=== PATIENT | male | born 2000 | race African-American/Black ===

== ENCOUNTER 2021-07-12 16:41 | Emergency (ER) | payer SELFPAY ==
--- NOTE | 2021-07-12 17:43 | RAD REPORT ---
EXAM DESCRIPTION: RAD - Knee Right 3 View - 07/12/2021 5:35 pm CLINICAL HISTORY: right knee pain COMPARISON: No comparisonsNo comparisons FINDINGS/IMPRESSION: No acute fracture. No malalignment. Question mild lateral compartment narrowing versus positioning.
--- NOTE | 2021-07-12 18:11 | ER ---
Nurse's Notes [facility] Name: Humphrey Montes Jr Age: 21 yrs Sex: Male : 2000 Arrival Date: 07/12/2021 Time: 16:44 Bed DIS3 Private MD: Diagnosis: Other internal derangements of right knee Presentation: 07/12 17:05 Chief complaint: Patient states: he has a hx of right knee injury, and it is bothering ap3 him more and more lately. patient states the pain is a 5/10 when walking and a 8/10 if he attempts to bend it. Coronavirus screen: At this time, the client does not indicate any symptoms associated with coronavirus-19. Ebola Screen: No symptoms or risks identified at this time. Initial Sepsis Screen: Does the patient meet any 2 criteria? No. Patient's initial sepsis screen is negative. Does the patient have a suspected source of infection? No. Patient's initial sepsis screen is negative. Risk Assessment: Do you want to hurt yourself or someone else? Patient reports no desire to harm self or others. Onset of symptoms is unknown. 17:05 Method Of Arrival: Ambulatory ap3 17:05 Acuity: ROSITA 4 ap3 Triage Assessment: 17:07 General: Appears in no apparent distress. Behavior is calm, cooperative, appropriate ap3 for age. Pain: Complains of pain in right knee Pain currently is 5 out of 10 on a pain scale. at worst was 8 out of 10 on a pain scale. Pain began gradually, years ago. Aggravated by exercise, increased activity, weight bearing. Neuro: Level of Consciousness is awake, alert, obeys commands, Oriented to person, place, time, situation, Appropriate for age Gait is steady, Speech is normal. Cardiovascular: Patient's skin is warm and dry. Respiratory: Airway is patent Respiratory effort is even, unlabored, Respiratory pattern is regular, symmetrical. Musculoskeletal: Swelling present in right knee Reports pain in right knee. Historical: - Allergies: 17:07 No Known Allergies; ap3 - Home Meds: 17:07 None [Active]; ap3 - PMHx: 17:07 None; ap3 - Immunization history:: Client reports having NOT received the Covid vaccine. Flu vaccine is up to date. - Social history:: Smoking status: Reported history of juuling and/or vaping. Screenin:09 Abuse screen: Denies threats or abuse. Nutritional screening: No deficits noted. ap3 Tuberculosis screening: No symptoms or risk factors identified. 18:21 Fall Risk None identified. ss Assessment: 18:21 General: Appears in no apparent distress. comfortable, Behavior is calm, cooperative. ss Pain: Complains of pain in right knee. Neuro: Level of Consciousness is awake, alert, obeys commands, Oriented to person, place, time, situation. Cardiovascular: Capillary refill < 3 seconds is brisk in bilateral fingers. Respiratory: Respiratory effort is even, unlabored. Derm: Skin is intact, is healthy with good turgor, Skin is dry, Skin is pink, warm \T\ dry. normal. Vital Signs: 17:05 BP 124 / 66; Pulse 65; Resp 15; Temp 98.7; Pulse Ox 100% ; Weight 79.38 kg; Height 6 ap3 ft. (182.88 cm); 17:05 Body Mass Index 23.73 (79.38 kg, 182.88 cm) ap3 ED Course: 16:44 Patient arrived in ED. as 16:46 Everardo Dan PA is PHCP. [facility] 16:46 Arturo Mccarthy DO is Attending Physician. m 17:07 Triage completed. ap3 17:09 Arm band placed on right wrist. ap3 17:36 Knee Right 3 View XRAY In Process Unspecified. EDMS 18:11 Judah Gould MD is Referral Physician. m 18:21 Mely Sheets, GLORIA is Primary Nurse. ss 18:21 Patient has correct armband on for positive identification. Bed in low position. ss 18:21 No provider procedures requiring assistance completed. Patient did not have IV access ss during this emergency room visit. Knee immobilizer applied on right knee. Administered Medications: No medications were administered Medication: 17:09 VIS not applicable for this client. ap3 Outcome: 18:11 Discharge ordered by . [facility] 18:21 Discharged to home ambulatory. ss 18:21 Condition: good 18:21 Discharge instructions given to patient, family, Instructed on discharge instructions, follow up and referral plans. medication usage, Demonstrated understanding of instructions, follow-up care, medications, Prescriptions given X 1. 18:22 Patient left the ED. ss Signatures: Dispatcher [employer] EDMS Everardo Dan, PA PA jmm Jose Miguel, Nova as Smirch, Mely, RN RN ss Nubia Fox RN RN ap3
--- NOTE | 2021-07-12 18:11 | EDPHYS ---
Physician Documentation [facility] Name: Humphrey Montes Jr Age: 21 yrs Sex: Male : 2000 Arrival Date: 07/12/2021 Time: 16:44 Bed DIS3 Private MD: ED Physician Arturo Mccarthy HPI: 07/12 18:07 This 21 yrs old Black Male presents to ER via Ambulatory with complaints of Knee Pain - jmm swelling. 18:07 The patient presents with an injury, pain. Onset: The symptoms/episode began/occurred jmm acutely, 4 day(s) ago. Modifying factors: The symptoms are alleviated by nothing. the symptoms are aggravated by bending knee. Is a 21-year-old male with no Romina conditions presents emerged department with complaints of right knee pain and swelling. Patient states he had previously injured the knee but 4 days ago dislocated his knee cap and developed swelling soon after. . Historical: - Allergies: 17:07 No Known Allergies; ap3 - Home Meds: 17:07 None [Active]; ap3 - PMHx: 17:07 None; ap3 - Immunization history:: Client reports having NOT received the Covid vaccine. Flu vaccine is up to date. - Social history:: Smoking status: Reported history of juuling and/or vaping. ROS: 18:07 Constitutional: Negative for fever, chills, and weight loss, Cardiovascular: Negative jmm for chest pain, palpitations, and edema, Respiratory: Negative for shortness of breath, cough, wheezing, and pleuritic chest pain. 18:07 MS/extremity: Positive for pain, swelling. 18:07 All other systems are negative. Exam: 18:07 Constitutional: This is a well developed, well nourished patient who is awake, alert, jmm and in no acute distress. Head/Face: atraumatic. Eyes: EOMI, no conjunctival erythema appreciated ENT: Moist Mucus Membranes Neck: Trachea midline, Supple Chest/axilla: Normal chest wall appearance and motion. Cardiovascular: Regular rate and rhythm. No edema appreciated Respiratory: Normal respirations, no respiratory distress appreciated Abdomen/GI: Non distended, soft Back: Normal ROM Skin: General appearance color normal 18:07 Musculoskeletal/extremity: Swelling noted to the right knee, full range of motion appreciated, compartments are soft, full dorsalis pedis pulse, neurovascular intact. 18:07 Skin: Appearance: Color: normal in color. 18:07 Neuro: Orientation: is normal, Mentation: is normal, Memory: is normal. 18:07 Psych: Behavior/mood is pleasant, cooperative. Vital Signs: 17:05 BP 124 / 66; Pulse 65; Resp 15; Temp 98.7; Pulse Ox 100% ; Weight 79.38 kg; Height 6 ap3 ft. (182.88 cm); 17:05 Body Mass Index 23.73 (79.38 kg, 182.88 cm) ap3 MDM: 16:54 Patient medically screened. [facility] 18:11 Data reviewed: vital signs, nurses notes. Counseling: I had a detailed discussion with [facility] the patient and/or guardian regarding: the historical points, exam findings, and any diagnostic results supporting the discharge/admit diagnosis, radiology results, the need for outpatient follow up, to return to the emergency department if symptoms worsen or persist or if there are any questions or concerns that arise at home. 07/12 16:56 Order name: Knee Right 3 View XRAY; Complete Time: 17:53 [facility] 07/12 17:54 Order name: Knee Immobilizer; Complete Time: 18:21 [facility] Administered Medications: No medications were administered Disposition: 22:02 Co-signature as Attending Physician, Arturo Mccarthy DO I was immediately available on-site ms3 in the Emergency Department for consultation in the care of the patient. . Disposition Summary: 07/12/21 18:11 Discharge Ordered Location: Home [facility] Condition: Stable [facility] Diagnosis - Other internal derangements of right knee [facility] Followup: [facility] - With: Judah Gould MD - When: 2 - 3 days - Reason: Recheck today's complaints, Continuance of care, Re-evaluation by your physician Discharge Instructions: - Discharge Summary Sheet [facility] - Acute Knee Pain, Adult [facility] Forms: - Medication Reconciliation Form [facility] - Thank You Letter [facility] - Antibiotic Education [facility] - Prescription Opioid Use [facility] Prescriptions: - Diclofenac Sodium 75 mg Oral Tablet Sustained Release - take 1 tablet by ORAL route 2 times per day; 30 tablet; Refills: 0, Product [facility] Selection Permitted Signatures: Dispatcher [employer] EDMS Mickail, Everardo, PA PA jmm Prokisch, Nubia, RN RN ap3 Mccarthy, Arturo, DO DO ms3
[2021-07-12 18:28] VITALS: BP 124/66; TEMP 98.7; O2SAT 100
== END 2021-07-12 18:22 | disposition home or self-care (01) ==
LOC: ER 16:41
DX: M23.8X1 Other internal derangements of right knee (principal)
CPT/HCPCS: 99283